=== PATIENT | female | born 1950 | race African-American/Black ===

== ENCOUNTER 2016-09-08 11:29 | Inpatient (IN) | payer MEDICARE, MEDICAID ==
[~2016-09-08] VITALS: Ht 180.3 cm; Wt 127.9 kg
[2016-09-08] MEDS ORDERED: FUROSEMIDE 40MG/4ML VIAL IV STA (12:22)
[2016-09-08] MEDS ORDERED: ASPIRIN 81MG TABLET PO STA (12:22)
[2016-09-08 12:45] LABS: BASOPHILS % 0.9 % (0.0-2.0); EOSINOPHILS % 1.1 % (0.0-5.0); HEMATOCRIT. 31.5 % (36.0-48.0); HEMOGLOBIN. 10.3 g/dL (12.0-16.0); LYMPHOCYTES % 33.5 % (20.0-50.0); MEAN CORPUSCULAR HEMOGLOBIN 29.6 pg (28.0-32.0); MEAN CORPUSCULAR VOLUME 90.5 fL (81.0-99.0); MEAN PLATELET VOLUME 8.2 fl (7.4-10.4); NEUTROPHILS % 58.5 % (40.0-76.0); PLATELET 251 x1000/uL (130-400); RED BLOOD CELL COUNT 3.48 mill/uL (4.2-5.4); RED CELL DISTRIBUTION WIDTH 16.7 % (11.6-14.6)
[2016-09-08 12:54] LABS: PARTIAL THROMBOPLASTIN TIME 29.3 sec (24.0-34.0); PROTHROMBIN TIME 10.2 sec
[2016-09-08 13:04] LABS: CARBON DIOXIDE 28 mEq/L (21-32); CHLORIDE 103 mEq/L (98-107); CREATINE KINASE 136 IU/L (26-192); TROPONIN I 0.03 ng/mL (0.00-0.04)
[2016-09-08] MEDS: HYDROCODONE/ACETAMINOPHEN 10/325MG TABLET PO PRN (18:19)
[2016-09-08 20:40] VITALS: BP 141/110
[2016-09-08] MEDS ORDERED: CARISOPRODOL 350 MG TABLET PO PRN (21:30)
[2016-09-08] MEDS ORDERED: LORAZEPAM 0.5MG TABLET PO ONE (21:30)
[2016-09-08] MEDS: GABAPENTIN 300MG CAPSULE PO SCH (23:11)
[2016-09-08] MEDS: LISINOPRIL 20MG TABLET PO SCH (23:12)
[2016-09-08] MEDS: ALLOPURINOL 100 MG TABLET PO SCH (23:13)
[2016-09-08] MEDS: CITALOPRAM HYDROBROMIDE 10MG TABLET PO SCH (23:13)
[2016-09-08] MEDS: CARVEDILOL 25MG TABLET PO SCH (23:13)
[2016-09-08] MEDS: OMEPRAZOLE 20MG CAPSULE EXTENDED RELEASE PO SCH (23:14)
[2016-09-08] MEDS: DOCUSATE SODIUM 250MG CAPSULE PO SCH (23:14)
[2016-09-08] MEDS ORDERED: INS NPH/REG HM 70-30 100 UNITS/ML 10ML VIAL (HUMULIN 70-30) SUBCUT SCH (23:30)
[2016-09-08] MEDS: BLOOD SUGAR DIAGNOSTIC STRIP TEST SCH (23:30)
[2016-09-08] MEDS ORDERED: UBIDECARENONE/VITAMIN E 50MG PO SCH (23:30)
[2016-09-08] MEDS: INSULIN LISPRO 100 UNITS/ML SUBCUT SCH (23:31)
[2016-09-09] VITALS: BP 119/74
[2016-09-09] MEDS: HYDROCODONE/ACETAMINOPHEN 10/325MG TABLET PO PRN (00:21)
[2016-09-09] MEDS ORDERED: GLYB2.5T4 PO (00:53)
[2016-09-09] MEDS ORDERED: ALLO300T2 PO (00:54)
[2016-09-09] MEDS ORDERED: METOLAZONE PO (00:56)
[2016-09-09] MEDS ORDERED: FELO5TAB PO (00:57)
[2016-09-09] MEDS ORDERED: HUMALIN SUBCUT (00:58)
[2016-09-09] MEDS ORDERED: [UNRECOGNIZED DRUG - MIXTURE] SUBCUT (01:02)
[2016-09-09] MEDS ORDERED: OMEP20CA10 PO (01:02)
[2016-09-09] MEDS ORDERED: MONT10TA24 PO (01:03)
[2016-09-09] MEDS ORDERED: GABA-290 PO (01:05)
[2016-09-09] MEDS ORDERED: LORA0.5T2 PO (01:10)
[2016-09-09] MEDS ORDERED: NORCO 7.5/325 PO (01:10)
[2016-09-09] MEDS ORDERED: HUMALIN 70/30 SUBCUT (01:15)
[2016-09-09] MEDS: BLOOD SUGAR DIAGNOSTIC STRIP TEST SCH ×3 (03:57→21:00)
[2016-09-09] MEDS: DEXTROSE 50% WATER 50ML SYRINGE IV PRN ×3 (03:58→05:23)
[2016-09-09 04:00] VITALS: BP 140/83
[2016-09-09] MEDS: GABAPENTIN 300MG CAPSULE PO SCH (06:00)
[2016-09-09 06:13] LABS: BASOPHILS % 0.9 % (0.0-2.0); EOSINOPHILS % 1.8 % (0.0-5.0); HEMATOCRIT. 27.5 % (36.0-48.0); HEMOGLOBIN. 9.1 g/dL (12.0-16.0); LYMPHOCYTES % 39.2 % (20.0-50.0); MEAN CORPUSCULAR VOLUME 91.2 fL (81.0-99.0); MONOCYTES % 8.6 % (2.0-8.0); NEUTROPHILS % 49.5 % (40.0-76.0); PLATELET 213 x1000/uL (130-400); RED BLOOD CELL COUNT 3.02 mill/uL (4.2-5.4); RED CELL DISTRIBUTION WIDTH 16.6 % (11.6-14.6)
[2016-09-09] MEDS: OMEPRAZOLE 20MG CAPSULE EXTENDED RELEASE PO SCH ×2 (06:13→18:10)
[2016-09-09 08:00] VITALS: BP 102/62
[2016-09-09 08:12] LABS: CARBON DIOXIDE 24 mEq/L (21-32); CHLORIDE 106 mEq/L (98-107)
[2016-09-09] MEDS ORDERED: INS NPH/REG HM 70-30 100 UNITS/ML 10ML VIAL (HUMULIN 70-30) SUBCUT SCH (09:00)
[2016-09-09] MEDS: CARVEDILOL 25MG TABLET PO SCH ×2 (09:00→22:01)
[2016-09-09] MEDS: LISINOPRIL 20MG TABLET PO SCH (09:00)
[2016-09-09] MEDS: CITALOPRAM HYDROBROMIDE 10MG TABLET PO SCH (09:00)
[2016-09-09] MEDS: DOCUSATE SODIUM 250MG CAPSULE PO SCH (09:00)
[2016-09-09] MEDS: ALLOPURINOL 100 MG TABLET PO SCH (11:08)
[2016-09-09] MEDS: ENOXAPARIN 40MG/0.4ML SYR SUBCUT SCH (11:09)
[2016-09-09] MEDS: FUROSEMIDE 40MG/4ML VIAL IVP SCH (11:12)
[2016-09-09 12:00] VITALS: BP 114/69
[2016-09-09] MEDS: INSULIN LISPRO 100 UNITS/ML SUBCUT SCH ×3 (12:50→22:16)
[2016-09-09] MEDS: HYDROCODONE/APAP 7.5/325MG 1 TAB TABLET PO PRN ×2 (13:22→22:08)
[2016-09-09] MEDS: GABAPENTIN 400MG CAPSULE PO SCH ×2 (14:49→21:57)
[2016-09-09 16:00] VITALS: BP 117/68
[2016-09-09] MEDS ORDERED: ONDANSETRON HCL 4MG/2ML VIAL IV PRN (17:45)
[2016-09-09] MEDS: UBIDECARENONE/VITAMIN E 50MG PO SCH (18:10)
[2016-09-09 20:00] VITALS: BP 146/89
[2016-09-09] MEDS ORDERED: ATORVASTATIN CALCIUM 10MG TABLET PO SCH (21:00)
[2016-09-10] VITALS: BP 138/82
[2016-09-10 04:00] VITALS: BP 114/67
[2016-09-10] MEDS: BLOOD SUGAR DIAGNOSTIC STRIP TEST SCH ×3 (05:54→17:54)
[2016-09-10] MEDS: OMEPRAZOLE 20MG CAPSULE EXTENDED RELEASE PO SCH ×2 (06:03→17:51)
[2016-09-10] MEDS: GABAPENTIN 400MG CAPSULE PO SCH ×2 (06:03→13:48)
[2016-09-10 06:49] LABS: PHOSPHORUS 3.6 mg/dL (2.5-4.9)
[2016-09-10 06:50] LABS: BASOPHILS % 1.3 % (0.0-2.0); EOSINOPHILS % 1.9 % (0.0-5.0); HEMATOCRIT. 26.7 % (36.0-48.0); HEMOGLOBIN. 8.7 g/dL (12.0-16.0); LYMPHOCYTES % 43.9 % (20.0-50.0); MEAN CORPUSCULAR HEMOGLOBIN 30.1 pg (28.0-32.0); MEAN PLATELET VOLUME 9.1 fl (7.4-10.4); MONOCYTES % 8.2 % (2.0-8.0); NEUTROPHILS % 44.7 % (40.0-76.0); PLATELET 197 x1000/uL (130-400); RED CELL DISTRIBUTION WIDTH 16.1 % (11.6-14.6)
[2016-09-10] MEDS: INSULIN LISPRO 100 UNITS/ML SUBCUT SCH ×3 (07:50→17:50)
[2016-09-10 08:00] VITALS: BP 128/79
[2016-09-10] MEDS: FERROUS SULFATE 325MG TABLET PO SCH ×3 (08:56→17:51)
[2016-09-10] MEDS: CITALOPRAM HYDROBROMIDE 10MG TABLET PO SCH (08:59)
[2016-09-10] MEDS: FUROSEMIDE 40MG/4ML VIAL IVP SCH (08:59)
[2016-09-10] MEDS ORDERED: ALLOPURINOL 100 MG TABLET PO SCH (09:00)
[2016-09-10] MEDS: DOCUSATE SODIUM 250MG CAPSULE PO SCH (09:01)
[2016-09-10] MEDS: ASCORBIC ACID 250 MG TABLET PO SCH ×3 (09:01→17:51)
[2016-09-10] MEDS: CARVEDILOL 25MG TABLET PO SCH (09:02)
[2016-09-10] MEDS: UBIDECARENONE/VITAMIN E 50MG PO SCH (09:03)
[2016-09-10] MEDS: ENOXAPARIN 40MG/0.4ML SYR SUBCUT SCH (09:03)
[2016-09-10] MEDS: LISINOPRIL 20MG TABLET PO SCH (09:20)
[2016-09-10 12:00] VITALS: BP 121/86
[2016-09-10 16:00] VITALS: BP 126/92
[2016-09-10] MEDS ORDERED: LISI-186 PO (20:07)
[2016-09-10] MEDS ORDERED: COR25 PO (20:08)
[2016-09-11 09:08] LABS: VITAMIN D 25-OH 20.6 ng/mL (30.0-100.0)
[2016-09-12 09:06] LABS: COMPLEMENT C3 116 mg/dL (82-167)
[2016-09-12 10:06] LABS: ANTI-NUCLEAR ANTIBODIES DIRECT Positive (Negative)
== END 2016-09-10 21:03 | disposition home or self-care (01) | DRG 291 ==
LOC: ER 11:34 → 6WST 14:11 → EDBEDREQ 14:12 → EDBEDREQTM 14:12 → ENRESERV 19:42 → SUPCPDRO 21:16
DX: I13.2 Hypertensive heart and chronic kidney disease with heart failure and with stage 5 chronic kidney disease, or end stage renal disease (principal); N18.6 End stage renal disease; I50.43 Acute on chronic combined systolic (congestive) and diastolic (congestive) heart failure; N17.9 Acute kidney failure, unspecified; E11.22 Type 2 diabetes mellitus with diabetic chronic kidney disease; Z96.653 Presence of artificial knee joint, bilateral; K21.9 Gastro-esophageal reflux disease without esophagitis; E78.5 Hyperlipidemia, unspecified; G89.29 Other chronic pain; M54.9 Dorsalgia, unspecified; M19.90 Unspecified osteoarthritis, unspecified site; F17.210 Nicotine dependence, cigarettes, uncomplicated; E66.01 Morbid (severe) obesity due to excess calories; E11.65 Type 2 diabetes mellitus with hyperglycemia; D63.1 Anemia in chronic kidney disease; F41.9 Anxiety disorder, unspecified; F32.9 Major depressive disorder, single episode, unspecified; Z88.0 Allergy status to penicillin; Z90.49 Acquired absence of other specified parts of digestive tract; Z68.39 Body mass index [BMI] 39.0-39.9, adult
CPT/HCPCS: 36415; 71010; 76770; 80048; 80053; 82306; 82550; 82962; 83605; 83690; 83735; 83880; 83970; 84100; 84132; 84443; 84484; 84550; 85025; 85610; 85730; 86038; 86160; 87040; 93005; 93970; 96374; 99285; J1650; J1815; J1940; J2405

== ENCOUNTER 2017-10-30 14:18 | Inpatient (IN) | payer MEDICARE, OTHER ==
[~2017-10-30] VITALS: Ht 180.3 cm; Wt 116.7 kg
[~2017-10-30 14:18] MED LIST: ALLO300T2 PO; COR25 PO; GABA-290 PO; GABA800T PO; GLYB2.5T4 PO; HUMALIN 70/30 SUBCUT; LISI-186 PO; LORA0.5T2 PO; METOLAZONE PO; MONT10TA24 PO; NORCO 7.5/325 PO; OMEP20CA10 PO; PRAV40TA58 PO
[2017-10-30] MEDS ORDERED: ONDANSETRON HCL 4MG/2ML VIAL IV STA (15:13)
[2017-10-30 15:31] LABS: BASOPHILS % 0.9 % (0.0-2.0); EOSINOPHILS % 1.9 % (0.0-5.0); HEMATOCRIT. 27.1 % (36.0-48.0); LYMPHOCYTES % 30.4 % (20.0-50.0); MEAN CORPUSCULAR HEMOGLOBIN 32.2 pg (28.0-32.0); MEAN CORPUSCULAR VOLUME 97.6 fL (81.0-99.0); MEAN PLATELET VOLUME 9.8 fl (7.4-10.4); NEUTROPHILS % 57.8 % (40.0-76.0); PLATELET 209 x1000/uL (130-400); RED BLOOD CELL COUNT 2.78 mill/uL (4.2-5.4); RED CELL DISTRIBUTION WIDTH 15.5 % (11.6-14.6)
[2017-10-30 15:33] LABS: CHLORIDE 98 mEq/L (98-107)
[2017-10-30 15:35] LABS: INR 1.1; PARTIAL THROMBOPLASTIN TIME 24.1 sec (23.4-31.0); PROTHROMBIN TIME 10.6 sec (9.1-11.1)
[2017-10-30 15:37] LABS: ETHANOL BLOOD < 10 mg/dL
[2017-10-30 17:38] LABS: CLARITY URINE TURBID (CLEAR); COLOR URINE YELLOW (YELLOW); KETONES URINE TRACE (NEGATIVE); LEUKOCYTE ESTERASE URINE 1+ (NEGATIVE); NITRITE URINE NEGATIVE (NEGATIVE); OCCULT BLOOD URINE 1+ (NEGATIVE); PROTEIN URINE 4+ (NEGATIVE); SPECIFIC GRAVITY URINE 1.035 (1.005-1.030); UROBILINOGEN URINE 0.2 E.U./dL (0.2-1.0)
[2017-10-30 17:53] LABS: *AMPHETAMINES SCREEN URINE NEGATIVE (NEGATIVE); *BARBITURATES SCREEN URINE NEGATIVE (NEGATIVE); *BENZODIAZEPINES SCREEN URINE PRESUMTIVE POSITIVE (NEGATIVE); *COCAINE SCREEN URINE NEGATIVE (NEGATIVE)
[2017-10-30 17:54] LABS: METHADONE URINE SCREEN NEGATIVE (NEGATIVE); OPIATES URINE SCREEN PRESUMTIVE POSITIVE (NEGATIVE); PHENCYCLIDINE URINE SCREEN NEGATIVE (NEGATIVE)
[2017-10-30 17:55] LABS: CANNABINOID URINE SCREEN PRESUMTIVE POSITIVE (NEGATIVE)
[2017-10-30 19:54] LABS: AMMONIA 18 uMol/L (<32)
[2017-10-30] MEDS ORDERED: ONDANSETRON HCL 4MG/2ML VIAL IV PRN (23:30)
[2017-10-30] MEDS ORDERED: ACETAMINOPHEN 325MG TABLET PO PRN (23:30)
[2017-10-30] MEDS ORDERED: VANCOMYCIN 1 G PREMIX 200 ML IV SCH (23:30)
[2017-10-30] MEDS ORDERED: CLONIDINE 0.1MG TABLET PO PRN (23:30)
[2017-10-30] MEDS ORDERED: IPRATROPIUM/ALBUTEROL 0.5-3(2.5)MG/3ML NEB INH PRN (23:30)
[2017-10-30 23:40] VITALS: BP 144/71
[2017-10-31] MEDS ORDERED: DEXTROSE 50% WATER 50ML SYRINGE IV PRN (00:30)
[2017-10-31] MEDS ORDERED: CEFTRIAXONE 1 G PREMIX 50 ML IV SCH (01:00)
[2017-10-31] MEDS ORDERED: LEVOFLOXACIN 500MG TABLET PO SCH ×2 (01:26→01:30)
[2017-10-31] MEDS ORDERED: VANCOMYCIN 1 G PREMIX 200 ML IV SCH (02:00)
[2017-10-31 04:25] VITALS: BP 92/50
[2017-10-31 06:00] VITALS: BP 102/54
[2017-10-31] MEDS: BLOOD SUGAR DIAGNOSTIC STRIP TEST SCH ×4 (07:20→21:53)
[2017-10-31] MEDS: INSULIN LISPRO 100 UNITS/ML SUBCUT SCH ×4 (07:50→21:59)
[2017-10-31 08:00] VITALS: BP 147/87
[2017-10-31 08:08] LABS: BASOPHILS % 0.6 % (0.0-2.0); EOSINOPHILS % 1.6 % (0.0-5.0); HEMATOCRIT. 24.5 % (36.0-48.0); HEMOGLOBIN. 8.2 g/dL (12.0-16.0); LYMPHOCYTES % 32.3 % (20.0-50.0); MEAN CORPUSCULAR VOLUME 96.4 fL (81.0-99.0); MEAN PLATELET VOLUME 9.5 fl (7.4-10.4); MONOCYTES % 9.8 % (2.0-8.0); NEUTROPHILS % 55.7 % (40.0-76.0); PLATELET 200 x1000/uL (130-400); RED BLOOD CELL COUNT 2.55 mill/uL (4.2-5.4); RED CELL DISTRIBUTION WIDTH 15.6 % (11.6-14.6)
[2017-10-31] MEDS: ASPIRIN 81MG EC TABLET PO SCH (09:00)
[2017-10-31 09:32] LABS: T4 FREE 1.15 ng/dL (0.76-1.46)
[2017-10-31 09:42] LABS: CHLORIDE 100 mEq/L (98-107); HDL CHOLESTEROL 82 mg/dL (40-59); LDL CHOLESTEROL 123 mg/dL (5-100)
[2017-10-31 12:00] VITALS: BP 155/60
[2017-10-31] MEDS: DEXT 5%/0.45% NACL 1000ML 1,000 ML IV SCH (14:05)
[2017-10-31 16:00] VITALS: BP 150/81
[2017-10-31] MEDS ORDERED: GENTAMICIN 120MG PREMIX 100 ML IV NR (16:00)
[2017-10-31 16:04] LABS: PHOSPHORUS 4.3 mg/dL (2.5-4.9)
[2017-10-31] MEDS ORDERED: VANCOMYCIN 2,000 MG in DEXT 5% WATER 500 ML IV NR (18:00)
[2017-10-31] MEDS: ONDANSETRON HCL 4MG/2ML VIAL IV PRN (19:24)
[2017-10-31 20:00] VITALS: BP 172/88
[2017-10-31] MEDS ORDERED: EPOETIN ALFA 10000UNITS/ML VIAL SUBCUT SCH (21:00)
[2017-10-31] MEDS ORDERED: THIAMINE HCL 100 MG in SODIUM CHLORIDE 0.9% 49 ML IV NR (22:00)
[2017-10-31] MEDS ORDERED: HYDRALAZINE 20MG/ML VIAL IV PRN (22:15)
[2017-11-01] VITALS: BP 132/68
[2017-11-01] MEDS: ONDANSETRON HCL 4MG/2ML VIAL IV PRN ×2 (01:54→16:40)
[2017-11-01] MEDS: DEXT 5%/0.45% NACL 1000ML 1,000 ML IV SCH ×2 (03:25→20:05)
[2017-11-01 04:00] VITALS: BP 150/83
[2017-11-01] MEDS: BLOOD SUGAR DIAGNOSTIC STRIP TEST SCH ×4 (06:41→21:45)
[2017-11-01 07:34] LABS: BASOPHILS % 0.7 % (0.0-2.0); EOSINOPHILS % 0.4 % (0.0-5.0); HEMATOCRIT. 25.5 % (36.0-48.0); HEMOGLOBIN. 8.4 g/dL (12.0-16.0); LYMPHOCYTES % 25.2 % (20.0-50.0); MEAN CORPUSCULAR HEMOGLOBIN 31.8 pg (28.0-32.0); MEAN CORPUSCULAR VOLUME 96.4 fL (81.0-99.0); MEAN PLATELET VOLUME 9.3 fl (7.4-10.4); MONOCYTES % 11.4 % (2.0-8.0); NEUTROPHILS % 62.3 % (40.0-76.0); PLATELET 194 x1000/uL (130-400); RED BLOOD CELL COUNT 2.64 mill/uL (4.2-5.4); RED CELL DISTRIBUTION WIDTH 14.9 % (11.6-14.6)
[2017-11-01] MEDS: INSULIN LISPRO 100 UNITS/ML SUBCUT SCH ×4 (07:50→21:00)
[2017-11-01 08:00] VITALS: BP 149/80
[2017-11-01] MEDS: ASPIRIN 81MG EC TABLET PO SCH (08:21)
[2017-11-01 12:00] VITALS: BP 138/78
[2017-11-01 13:53] LABS: FOLIC ACID (FOLATE) SERUM >20 ng/mL ng/mL (>5.38)
[2017-11-01 14:04] LABS: VITAMIN B12 SERUM 1255 pg/mL (211-911)
[2017-11-01 16:00] VITALS: BP 160/80
[2017-11-01] MEDS: PANTOPRAZOLE SODIUM 40 MG/VIAL IV SCH (16:40)
[2017-11-01 20:00] VITALS: BP 129/59
[2017-11-01] MEDS ORDERED: LEVOFLOXACIN 250MG TABLET PO SCH (21:00)
[2017-11-01] MEDS ORDERED: RISPERIDONE 0.5MG TABLET PO PRN (21:15)
[2017-11-02] VITALS: BP 130/66
[2017-11-02 04:00] VITALS: BP 139/70
[2017-11-02] MEDS: BLOOD SUGAR DIAGNOSTIC STRIP TEST SCH ×4 (06:55→20:21)
[2017-11-02] MEDS: INSULIN LISPRO 100 UNITS/ML SUBCUT SCH ×4 (06:56→20:21)
[2017-11-02 07:17] LABS: BASOPHILS % 0.8 % (0.0-2.0); EOSINOPHILS % 0.9 % (0.0-5.0); HEMATOCRIT. 27.1 % (36.0-48.0); HEMOGLOBIN. 9.1 g/dL (12.0-16.0); LYMPHOCYTES % 25.8 % (20.0-50.0); MEAN CORPUSCULAR HEMOGLOBIN 32.5 pg (28.0-32.0); MEAN CORPUSCULAR VOLUME 97.5 fL (81.0-99.0); MEAN PLATELET VOLUME 8.6 fl (7.4-10.4); MONOCYTES % 11.7 % (2.0-8.0); NEUTROPHILS % 60.8 % (40.0-76.0); PLATELET 189 x1000/uL (130-400); RED BLOOD CELL COUNT 2.78 mill/uL (4.2-5.4); RED CELL DISTRIBUTION WIDTH 15.4 % (11.6-14.6)
[2017-11-02 07:29] LABS: AMMONIA 12 uMol/L (<32)
[2017-11-02 08:38] VITALS: BP 123/66
[2017-11-02 08:53] LABS: CHLORIDE 101 mEq/L (98-107)
[2017-11-02] MEDS: ASPIRIN 81MG EC TABLET PO SCH (08:55)
[2017-11-02] MEDS: PANTOPRAZOLE SODIUM 40 MG/VIAL IV SCH (08:56)
[2017-11-02 12:17] VITALS: BP 142/78
[2017-11-02] MEDS: DEXT 5%/0.45% NACL 1000ML 1,000 ML IV SCH (14:14)
[2017-11-02] MEDS: ONDANSETRON HCL 4MG/2ML VIAL IV PRN (16:35)
[2017-11-02 17:09] VITALS: BP 118/85
[2017-11-02 20:00] VITALS: BP 126/71
[2017-11-03] VITALS (7 sets, daily range): BP systolic 108–154; BP diastolic 61–82
[2017-11-03] MEDS: METOCLOPRAMIDE HCL 10MG/2ML VIAL IV SCH ×4 (00:49→18:29)
[2017-11-03] MEDS ORDERED: GABAPENTIN 300MG CAPSULE PO SCH ×2 (05:33→21:00)
[2017-11-03] MEDS: BLOOD SUGAR DIAGNOSTIC STRIP TEST SCH ×3 (06:40→18:29)
[2017-11-03 06:49] LABS: BASOPHILS % 1.3 % (0.0-2.0); EOSINOPHILS % 2.4 % (0.0-5.0); HEMOGLOBIN. 8.5 g/dL (12.0-16.0); LYMPHOCYTES % 29.4 % (20.0-50.0); MEAN CORPUSCULAR HEMOGLOBIN 32.3 pg (28.0-32.0); MEAN PLATELET VOLUME 9.4 fl (7.4-10.4); MONOCYTES % 14.4 % (2.0-8.0); NEUTROPHILS % 52.5 % (40.0-76.0); PLATELET 177 x1000/uL (130-400); RED BLOOD CELL COUNT 2.62 mill/uL (4.2-5.4); RED CELL DISTRIBUTION WIDTH 15.7 % (11.6-14.6)
[2017-11-03] MEDS: INSULIN LISPRO 100 UNITS/ML SUBCUT SCH ×3 (07:50→18:30)
[2017-11-03] MEDS: PANTOPRAZOLE SODIUM 40 MG/VIAL IV SCH (09:51)
[2017-11-03] MEDS: ASPIRIN 81MG EC TABLET PO SCH (09:51)
[2017-11-03] MEDS ORDERED: FOLIC ACID/VITAMIN B COMP W-C TABLET PO SCH (10:45)
[2017-11-03] MEDS ORDERED: HEPARIN SODIUM 1,000 UNIT/1ML VIAL IV NR (12:15)
[2017-11-03] MEDS: DEXT 5%/0.45% NACL 1000ML 1,000 ML IV SCH (15:36)
[2017-11-04] MEDS ORDERED: PANTOPRAZOLE 40MG DR TABLET PO SCH (07:20)
== END 2017-11-03 20:30 | DRG 91 ==
LOC: ER 14:18 → 6WST 18:33 → EDBEDREQTM 18:36 → EDBEDREQ 18:36 → CANRESERV 20:06 → ENRESERV 20:06
PROVIDERS: ADMIT Internal Medicine; ATTEND Internal Medicine
PROC: 5A1D70Z Performance of Urinary Filtration, Intermittent, Less than 6 Hours Per Day (ICD-10-PCS; principal; 2017-10-31)
PROC: 5A1D70Z Performance of Urinary Filtration, Intermittent, Less than 6 Hours Per Day (ICD-10-PCS; 2017-11-01)
PROC: 5A1D70Z Performance of Urinary Filtration, Intermittent, Less than 6 Hours Per Day (ICD-10-PCS; 2017-11-03)
DX: G92 Toxic encephalopathy (principal); N18.6 End stage renal disease; I50.43 Acute on chronic combined systolic (congestive) and diastolic (congestive) heart failure; I13.2 Hypertensive heart and chronic kidney disease with heart failure and with stage 5 chronic kidney disease, or end stage renal disease; E46 Unspecified protein-calorie malnutrition; N39.0 Urinary tract infection, site not specified; D63.8 Anemia in other chronic diseases classified elsewhere; E11.22 Type 2 diabetes mellitus with diabetic chronic kidney disease; E11.65 Type 2 diabetes mellitus with hyperglycemia; M13.0 Polyarthritis, unspecified; E66.01 Morbid (severe) obesity due to excess calories; E78.5 Hyperlipidemia, unspecified; E86.9 Volume depletion, unspecified; K21.9 Gastro-esophageal reflux disease without esophagitis; E78.00 Pure hypercholesterolemia, unspecified; F32.9 Major depressive disorder, single episode, unspecified; F12.10 Cannabis abuse, uncomplicated; F11.10 Opioid abuse, uncomplicated; F13.10 Sedative, hypnotic or anxiolytic abuse, uncomplicated; F41.9 Anxiety disorder, unspecified; J45.909 Unspecified asthma, uncomplicated; M10.9 Gout, unspecified; Z96.611 Presence of right artificial shoulder joint; Z96.612 Presence of left artificial shoulder joint; Z96.653 Presence of artificial knee joint, bilateral; G89.29 Other chronic pain; Z90.49 Acquired absence of other specified parts of digestive tract; Z88.0 Allergy status to penicillin; Z99.2 Dependence on renal dialysis; Z79.899 Other long term (current) drug therapy; Z87.891 Personal history of nicotine dependence; Z68.35 Body mass index [BMI] 35.0-35.9, adult
CPT/HCPCS: 36415; 70450; 70551; 71045; 74176; 80048; 80053; 80061; 80202; 80305; 80355; 81003; 82140; 82306; 82607; 82746; 82962; 83605; 83690; 83735; 83880; 84100; 84439; 84443; 84484; 84550; 85025; 85610; 85730; 87040; 87086; 92610; 93005; 93306; 93970; 96374; 97110; 97162; 97530; 99285; C9113; G0482; J0360; J0885; J1580; J1644; J1815; J2405; J2765; J3370; J3411; J3490; J7030; J7060

== ENCOUNTER 2018-01-16 07:58 | Inpatient (IN) | payer MEDICARE, OTHER ==
[~2018-01-16] VITALS: Ht 180.3 cm; Wt 129.7 kg
[2018-01-16 16:13] VITALS: BP 126/69
[2018-01-16] MEDS: INSULIN LISPRO 100 UNITS/ML SUBCUT SCH ×2 (17:40→20:32)
[2018-01-16] MEDS ORDERED: DEXTROSE 50% WATER 50ML SYRINGE IV PRN (17:45)
[2018-01-16 17:50] LABS: CHLORIDE 100 mEq/L (98-107)
[2018-01-16 17:51] LABS: PROTHROMBIN TIME 9.7 sec (9.1-11.1)
[2018-01-16 17:53] LABS: BASOPHILS % 1.1 % (0.0-2.0); EOSINOPHILS % 3.9 % (0.0-5.0); HEMATOCRIT. 41.6 % (36.0-48.0); HEMOGLOBIN. 12.6 g/dL (12.0-16.0); LYMPHOCYTES % 39.1 % (20.0-50.0); MEAN CORPUSCULAR HEMOGLOBIN 29.2 pg (28.0-32.0); MEAN CORPUSCULAR VOLUME 95.8 fL (81.0-99.0); MEAN PLATELET VOLUME 8.5 fl (7.4-10.4); MONOCYTES % 10.1 % (2.0-8.0); NEUTROPHILS % 45.8 % (40.0-76.0); PLATELET 199 x1000/uL (130-400); RED BLOOD CELL COUNT 4.34 mill/uL (4.2-5.4); RED CELL DISTRIBUTION WIDTH 17.7 % (11.6-14.6)
[2018-01-16] MEDS ORDERED: LISINOPRIL 5MG TABLET PO SCH (18:00)
[2018-01-16] MEDS: ALLOPURINOL 300 MG TABLET PO SCH (18:05)
[2018-01-16 20:00] VITALS: BP 119/67
[2018-01-16] MEDS: BLOOD SUGAR DIAGNOSTIC STRIP TEST SCH (20:32)
[2018-01-16] MEDS ORDERED: CARVEDILOL 25MG TABLET PO SCH (21:00)
[2018-01-16] MEDS: GABAPENTIN 100MG CAPSULE PO SCH (21:01)
[2018-01-16] MEDS: TEMAZEPAM 15MG CAPSULE PO PRN (22:45)
[2018-01-16] MEDS: ENOXAPARIN 40MG/0.4ML SYR SUBCUT SCH (22:47)
[2018-01-16] MEDS: HYDROCODONE/ACETAMINOPHEN 5/325MG TABLET PO PRN (22:56)
[2018-01-16 23:00] VITALS: BP 107/62
[2018-01-17] VITALS (10 sets, daily range): BP systolic 76–131; BP diastolic 43–68
[2018-01-17] MEDS ORDERED: SODIUM CHLORIDE 0.9% 250 ML IV NR (05:30)
[2018-01-17] MEDS: BLOOD SUGAR DIAGNOSTIC STRIP TEST SCH ×4 (05:42→20:16)
[2018-01-17] MEDS: GABAPENTIN 100MG CAPSULE PO SCH ×3 (05:51→20:55)
[2018-01-17] MEDS: OMEPRAZOLE 20MG CAPSULE EXTENDED RELEASE PO SCH (05:51)
[2018-01-17] MEDS: INSULIN LISPRO 100 UNITS/ML SUBCUT SCH ×4 (05:52→21:00)
[2018-01-17 06:14] LABS: HEMATOCRIT 33.6 % (36.0-48.0); HEMOGLOBIN 10.5 g/dL (12.0-16.0); MEAN CORPUSCULAR HEMOGLOBIN 29.8 pg (28.0-32.0); MEAN CORPUSCULAR VOLUME 94.7 fL (81.0-99.0); PLATELET 194 x1000/uL (130-400); RED BLOOD CELL COUNT 3.54 mill/uL (4.2-5.4); RED CELL DISTRIBUTION WIDTH 17.7 % (11.6-14.6)
[2018-01-17 06:47] LABS: CHLORIDE 100 mEq/L (98-107)
[2018-01-17 07:17] LABS: HDL CHOLESTEROL 57 mg/dL (40-59)
[2018-01-17 07:18] LABS: LDL CHOLESTEROL 152 mg/dL (5-100)
[2018-01-17] MEDS: ALLOPURINOL 300 MG TABLET PO SCH (08:30)
[2018-01-17] MEDS ORDERED: HEPARIN 1000 UNITS/ML 10ML ONE (11:18)
[2018-01-17] MEDS: FOLIC ACID/VITAMIN B COMP W-C TABLET PO SCH (11:25)
[2018-01-17] MEDS ORDERED: ALTEPLASE 2MG/VIAL ITC SCH (16:30)
[2018-01-17] MEDS: ENOXAPARIN 40MG/0.4ML SYR SUBCUT SCH (20:54)
[2018-01-17] MEDS: HYDROCODONE/ACETAMINOPHEN 5/325MG TABLET PO PRN (20:55)
[2018-01-17] MEDS ORDERED: ATORVASTATIN CALCIUM 20MG TABLET PO SCH (21:00)
[2018-01-17] MEDS: TEMAZEPAM 15MG CAPSULE PO PRN (22:40)
[2018-01-18 04:00] VITALS: BP 108/61
[2018-01-18] MEDS: BLOOD SUGAR DIAGNOSTIC STRIP TEST SCH ×2 (05:44→11:00)
[2018-01-18] MEDS: GABAPENTIN 100MG CAPSULE PO SCH ×2 (06:02→13:15)
[2018-01-18] MEDS: OMEPRAZOLE 20MG CAPSULE EXTENDED RELEASE PO SCH (06:02)
[2018-01-18] MEDS: INSULIN LISPRO 100 UNITS/ML SUBCUT SCH ×2 (06:02→12:40)
[2018-01-18 07:36] LABS: BASOPHILS % 1.5 % (0.0-2.0); EOSINOPHILS % 5.1 % (0.0-5.0); HEMATOCRIT. 33.7 % (36.0-48.0); HEMOGLOBIN. 10.7 g/dL (12.0-16.0); MEAN CORPUSCULAR HEMOGLOBIN 30.7 pg (28.0-32.0); MEAN CORPUSCULAR VOLUME 96.5 fL (81.0-99.0); MEAN PLATELET VOLUME 8.8 fl (7.4-10.4); MONOCYTES % 10.4 % (2.0-8.0); PLATELET 193 x1000/uL (130-400); RED BLOOD CELL COUNT 3.49 mill/uL (4.2-5.4); RED CELL DISTRIBUTION WIDTH 16.9 % (11.6-14.6)
[2018-01-18 08:01] VITALS: BP 100/60
[2018-01-18] MEDS: FOLIC ACID/VITAMIN B COMP W-C TABLET PO SCH (08:28)
[2018-01-18] MEDS: HYDROCODONE/ACETAMINOPHEN 5/325MG TABLET PO PRN (09:19)
[2018-01-18 12:00] VITALS: BP 150/73
[2018-01-18] MEDS ORDERED: EPOETIN ALFA 4000UNITS/ML VIAL SUBCUT SCH (21:00)
== END 2018-01-18 16:50 | disposition home or self-care (01) | DRG 286 ==
LOC: ER 11:51 → EDBEDREQ 11:58 → EDBEDREQTM 11:58 → ENRESERV 12:28 → 8WST 16:12
PROVIDERS: ADMIT Internal Medicine; ATTEND Internal Medicine
PROC: 5A1D70Z Performance of Urinary Filtration, Intermittent, Less than 6 Hours Per Day (ICD-10-PCS; principal; 2018-01-17)
PROC: B2141ZZ Fluoroscopy of Right Heart using Low Osmolar Contrast (ICD-10-PCS; 2018-01-17)
PROC: 3E03317 Introduction of Other Thrombolytic into Peripheral Vein, Percutaneous Approach (ICD-10-PCS; 2018-01-17)
PROC: 02H633Z Insertion of Infusion Device into Right Atrium, Percutaneous Approach (ICD-10-PCS; 2018-01-17)
PROC: B244ZZZ Ultrasonography of Right Heart (ICD-10-PCS; 2018-01-17)
PROC: 5A1D70Z Performance of Urinary Filtration, Intermittent, Less than 6 Hours Per Day (ICD-10-PCS; 2018-01-18)
DX: T82.868A Thrombosis due to vascular prosthetic devices, implants and grafts, initial encounter (principal); N18.6 End stage renal disease; I50.43 Acute on chronic combined systolic (congestive) and diastolic (congestive) heart failure; T82.41XA Breakdown (mechanical) of vascular dialysis catheter, initial encounter; I13.2 Hypertensive heart and chronic kidney disease with heart failure and with stage 5 chronic kidney disease, or end stage renal disease; E46 Unspecified protein-calorie malnutrition; G93.40 Encephalopathy, unspecified; E11.22 Type 2 diabetes mellitus with diabetic chronic kidney disease; E11.319 Type 2 diabetes mellitus with unspecified diabetic retinopathy without macular edema; E66.01 Morbid (severe) obesity due to excess calories; Z99.2 Dependence on renal dialysis; E87.5 Hyperkalemia; D64.9 Anemia, unspecified; E78.5 Hyperlipidemia, unspecified; F32.9 Major depressive disorder, single episode, unspecified; M25.569 Pain in unspecified knee; F41.9 Anxiety disorder, unspecified; Z96.651 Presence of right artificial knee joint; G89.29 Other chronic pain; I49.3 Ventricular premature depolarization; K21.9 Gastro-esophageal reflux disease without esophagitis; M10.9 Gout, unspecified; M19.90 Unspecified osteoarthritis, unspecified site; Z83.3 Family history of diabetes mellitus; Z87.440 Personal history of urinary (tract) infections; Z90.49 Acquired absence of other specified parts of digestive tract; Z87.891 Personal history of nicotine dependence; Z88.0 Allergy status to penicillin; Z68.39 Body mass index [BMI] 39.0-39.9, adult; Y83.8 Other surgical procedures as the cause of abnormal reaction of the patient, or of later complication, without mention of misadventure at the time of the procedure; Y92.89 Other specified places as the place of occurrence of the external cause; Z79.899 Other long term (current) drug therapy
CPT/HCPCS: 36415; 36569; 71045; 76937; 77001; 80048; 80061; 82962; 84443; 84550; 85027; 93005; 99285; C1725; C1752; C1769; J1644; J1650; J1815; J2997

== ENCOUNTER 2018-04-24 10:51 | Inpatient (IN) | payer MEDICARE, OTHER ==
[2018-04-24] VITALS (13 sets, daily range): BP systolic 116–162; BP diastolic 53–77
[~2018-04-24] VITALS: Ht 180.3 cm; Wt 129.7 kg
[~2018-04-24 10:51] MED LIST changes: -GABA-290 PO; -LORA0.5T2 PO
[2018-04-24] MEDS ORDERED: HYDROCODONE/ACETAMINOPHEN 5/325MG TABLET PO STA (11:20)
[2018-04-24 12:09] LABS: BASOPHILS % 1.8 % (0.0-2.0); EOSINOPHILS % 7.9 % (0.0-5.0); HEMATOCRIT. 38.6 % (36.0-48.0); HEMOGLOBIN. 11.7 g/dL (12.0-16.0); LYMPHOCYTES % 27.7 % (20.0-50.0); MEAN CORPUSCULAR HEMOGLOBIN 26.1 pg (28.0-32.0); MEAN CORPUSCULAR VOLUME 86.6 fL (81.0-99.0); MEAN PLATELET VOLUME 8.6 fl (7.4-10.4); MONOCYTES % 9.6 % (2.0-8.0); PLATELET 267 x1000/uL (130-400); RED BLOOD CELL COUNT 4.46 mill/uL (4.2-5.4); RED CELL DISTRIBUTION WIDTH 22.8 % (11.6-14.6)
[2018-04-24 12:14] LABS: CHLORIDE 101 mEq/L (98-107)
[2018-04-24] MEDS ORDERED: SODIUM BICARBONATE 4% (2.4MEQ) 5ML VIAL IV ONE (14:18)
[2018-04-24] MEDS ORDERED: LIDOCAINE HCL 1% 20ML VIAL (Pyxis) INJ ONE (14:18)
[2018-04-24] MEDS ORDERED: CLINDAMYCIN 600 MG in DEXTROSE 5% WATER 50 ML IV ONE (14:30)
[2018-04-24] MEDS ORDERED: FENTANYL CITRATE/PF 50MCG/ML 2ML VIAL ONE (14:56)
[2018-04-24] MEDS ORDERED: FENTANYL CITRATE/PF 50MCG/ML 2ML VIAL IV ONE (15:30)
[2018-04-24] MEDS ORDERED: ACETAMINOPHEN 325MG TABLET PO PRN (19:30)
[2018-04-24] MEDS ORDERED: CLONIDINE 0.1MG TABLET PO PRN (19:30)
[2018-04-24] MEDS ORDERED: ONDANSETRON HCL 4MG/2ML INJ IV PRN (19:30)
[2018-04-24] MEDS ORDERED: MAGNESIUM/ALUMINUM HYDROXIDE/SIMETHICONE 30ML UDC PO PRN (19:30)
[2018-04-24] MEDS ORDERED: DIPHENHYDRAMINE 50MG/ML VIAL IV PRN (19:30)
[2018-04-24] MEDS ORDERED: ZOLPIDEM TARTRATE 5MG TABLET PO PRN (19:30)
[2018-04-24] MEDS ORDERED: DEXTROSE 50% WATER 50ML SYRINGE IV PRN (19:30)
[2018-04-24] MEDS ORDERED: MAGNESIUM HYDROXIDE 400MG/5ML 30ML UDC PO PRN (19:30)
[2018-04-24] MEDS: HYDROCODONE/ACETAMINOPHEN 5/325MG TABLET PO PRN (20:50)
[2018-04-24] MEDS: GABAPENTIN 100MG CAPSULE PO SCH (20:59)
[2018-04-24] MEDS: CARVEDILOL 25MG TABLET PO SCH (20:59)
[2018-04-24] MEDS: BLOOD SUGAR DIAGNOSTIC STRIP TEST SCH (21:00)
[2018-04-24] MEDS: SODIUM CHLORIDE 0.9% INJ 3ML FLUSH IVF SCH (21:00)
[2018-04-24] MEDS: INSULIN LISPRO 100 UNITS/ML SUBCUT SCH (21:00)
[2018-04-24] MEDS ORDERED: AMLODIPINE 5MG TABLET PO SCH (21:00)
[2018-04-25] VITALS: BP 105/49
[2018-04-25 04:00] VITALS: BP 117/61
[2018-04-25] MEDS: SODIUM CHLORIDE 0.9% INJ 3ML FLUSH IVF SCH ×2 (06:08→14:00)
[2018-04-25] MEDS: GABAPENTIN 100MG CAPSULE PO SCH ×2 (06:08→14:00)
[2018-04-25] MEDS: BLOOD SUGAR DIAGNOSTIC STRIP TEST SCH ×3 (06:25→17:10)
[2018-04-25] MEDS: INSULIN LISPRO 100 UNITS/ML SUBCUT SCH ×3 (06:25→17:20)
[2018-04-25] MEDS ORDERED: OMEPRAZOLE 20MG CAPSULE EXTENDED RELEASE PO SCH (07:10)
[2018-04-25 08:00] VITALS: BP 114/57
[2018-04-25] MEDS: CARVEDILOL 25MG TABLET PO SCH (08:56)
[2018-04-25] MEDS ORDERED: ALLOPURINOL 300 MG TABLET PO SCH (09:00)
[2018-04-25] MEDS ORDERED: FOLIC ACID/VITAMIN B COMP W-C TABLET PO SCH (09:00)
[2018-04-25] MEDS ORDERED: LISINOPRIL 5MG TABLET PO SCH (09:00)
[2018-04-25] MEDS: HYDROCODONE/ACETAMINOPHEN 5/325MG TABLET PO PRN ×2 (09:08→16:27)
[2018-04-25 12:00] VITALS: BP 113/63
[2018-04-25 16:00] VITALS: BP 147/76
[2018-04-25 20:00] VITALS: BP 136/75
== END 2018-04-25 21:15 | disposition home or self-care (01) | DRG 314 ==
LOC: ER 10:51 → 8WST 12:53 → EDBEDREQ 12:55 → EDBEDREQTM 12:55 → ENRESERV 17:42
PROVIDERS: ADMIT Internal Medicine; ATTEND Internal Medicine
PROC: 0J2TXYZ Change Other Device in Trunk Subcutaneous Tissue and Fascia, External Approach (ICD-10-PCS; principal; 2018-04-24)
PROC: 5A1D70Z Performance of Urinary Filtration, Intermittent, Less than 6 Hours Per Day (ICD-10-PCS; 2018-04-25)
DX: T82.41XA Breakdown (mechanical) of vascular dialysis catheter, initial encounter (principal); N18.6 End stage renal disease; E46 Unspecified protein-calorie malnutrition; I13.2 Hypertensive heart and chronic kidney disease with heart failure and with stage 5 chronic kidney disease, or end stage renal disease; I50.32 Chronic diastolic (congestive) heart failure; D63.1 Anemia in chronic kidney disease; E11.22 Type 2 diabetes mellitus with diabetic chronic kidney disease; E78.00 Pure hypercholesterolemia, unspecified; E66.9 Obesity, unspecified; M25.569 Pain in unspecified knee; G89.29 Other chronic pain; M10.9 Gout, unspecified; Z96.653 Presence of artificial knee joint, bilateral; Z82.49 Family history of ischemic heart disease and other diseases of the circulatory system; Z83.3 Family history of diabetes mellitus; Z87.440 Personal history of urinary (tract) infections; Z99.2 Dependence on renal dialysis; Z68.39 Body mass index [BMI] 39.0-39.9, adult; Z88.0 Allergy status to penicillin; Z90.49 Acquired absence of other specified parts of digestive tract; Z79.899 Other long term (current) drug therapy; Y71.2 Prosthetic and other implants, materials and accessory cardiovascular devices associated with adverse incidents; Y92.89 Other specified places as the place of occurrence of the external cause
CPT/HCPCS: 36415; 36581; 71045; 77001; 82962; 84484; 93005; 93970; 96365; 99285; C1750; C1769; J1642; J3010; J3490; J7050; J7060

== ENCOUNTER 2019-10-19 17:43 | Emergency (ER) | payer MEDICARE, OTHER ==
[~2019-10-19] VITALS: Ht 180.3 cm; Wt 119.5 kg
[~2019-10-19 17:43] MED LIST changes: +ALBU90AE INH; +CALC1POW43 PO; -MONT10TA24 PO; +MONT10TA26 PO; -OMEP20CA10 PO; +OMEP20CA14 PO
[2019-10-19 19:06] LABS: BASOPHILS % 1.3 % (0.0-2.0); EOSINOPHILS % 3.9 % (0.0-5.0); HEMOGLOBIN. 11.2 g/dL (12.0-16.0); LYMPHOCYTES % 45.1 % (20.0-50.0); MEAN CORPUSCULAR VOLUME 97.5 fL (81.0-99.0); MEAN PLATELET VOLUME 8.4 fl (7.4-10.4); MONOCYTES % 11.6 % (2.0-8.0); NEUTROPHILS % 38.1 % (40.0-76.0); PLATELET 306 x1000/uL (130-400); RED BLOOD CELL COUNT 3.49 mill/uL (4.2-5.4); RED CELL DISTRIBUTION WIDTH 17.7 % (11.6-14.6)
[2019-10-19 19:11] LABS: CHLORIDE 97 mEq/L (98-107)
[2019-10-19 19:12] LABS: PROTHROMBIN TIME 10.9 sec (9.6-11.0)
[2019-10-19 20:00] VITALS: BP 119/67
== END 2019-10-19 20:00 | disposition home or self-care (01) ==
LOC: ER 17:43 → CANBEDREQ 10-20 00:20
DX: I12.0 Hypertensive chronic kidney disease with stage 5 chronic kidney disease or end stage renal disease (principal); E11.22 Type 2 diabetes mellitus with diabetic chronic kidney disease; N18.6 End stage renal disease; Z99.2 Dependence on renal dialysis; Z90.49 Acquired absence of other specified parts of digestive tract; Z96.659 Presence of unspecified artificial knee joint; Z98.890 Other specified postprocedural states; Z88.0 Allergy status to penicillin; Z79.899 Other long term (current) drug therapy; Z20.828 Contact with and (suspected) exposure to other viral communicable diseases
CPT/HCPCS: 36415; 71045; 80053; 83605; 83690; 85025; 85610; 87635; 93005; 99285; C9803